=== PATIENT | male | born 1965 | race African-American/Black ===

== ENCOUNTER 2017-02-27 15:32 | Inpatient (IN) ==
[2017-02-27] MEDS ORDERED: Albuterol 2.5 MG/3 ML NEBULIZER IH PRN (16:40)
[2017-02-27] MEDS: *HR* HYDROcodone/Acet 5/325 mg TABLET PO PRN (17:47)
[2017-02-27] MEDS ORDERED: *HR* Warfarin 7.5 MG TABLET PO SCH (18:00)
[2017-02-27] MEDS: *HR* Glimepiride 4 MG TABLET PO SCH (21:32)
[2017-02-27] MEDS: METFORMIN HCL PO SCH (21:33)
[2017-02-27] MEDS: SITAGLIPTIN PHOS PO SCH (21:33)
[2017-02-27] MEDS: HYDROCHLOROTHIAZIDE PO SCH (21:33)
[2017-02-27] MEDS: VALSARTAN PO SCH (21:33)
[2017-02-27] MEDS: traMADol 50 MG TABLET PO PRN (23:33)
[2017-02-28] MEDS: *HR* HYDROcodone/Acet 5/325 mg TABLET PO PRN ×2 (05:10→12:19)
[2017-02-28 05:43] LABS: Basophils # 0.1 K/mcL (0.0-0.2); Basophils % 0.5 %; Eosinophils # 0.2 K/mcL (0.0-0.6); Eosinophils % 1.7 %; Hematocrit 40.1 % (37.5-50.1); Hemoglobin 13.7 g/dL (12.9-16.9); Immature Granulocytes % 0.9 % (0-4); Lymphocytes # 1.8 K/mcL (0.6-4.6); Lymphocytes % 15.5 %; Mean Corpuscular HGB Conc 34.2 g/dL (31.6-35.5); Mean Corpuscular Hemoglobin 29.1 pg (28.0-33.3); Mean Corpuscular Volume 85.1 fL (83.0-100.0); Mean Platelet Volume 9.8 fL (9.4-12.4); Monocytes % 8.4 %; Neutrophils # 8.3 K/mcL (1.6-8.9); Platelet Count 231 K/mcL (140-400); Red Blood Count 4.71 M/mcL (4.19-5.50); Red Cell Distribution Width 12.7 % (11.5-14.5)
[2017-02-28 05:45] LABS: INR 2.6; Prothrombin Time 29.1 Seconds (9.4-12.1)
[2017-02-28 05:53] LABS: BUN/Creatinine Ratio 10 (6-26); Blood Urea Nitrogen 11 mg/dL (8-26); Calcium 9.9 mg/dL (8.6-10.8); Carbon Dioxide 26 mEq/L (19-29); Chloride 105 mEq/L (98-109); Glucose 107 mg/dL (70-99); Osmolality,Calculated 290 (280-300); Potassium 4.1 mEq/L (3.5-4.5); Sodium 140 mEq/L (136-145); eGFR For African Americans > 60 (> 60); eGFR For Non-African Americans > 60 (> 60)
[2017-02-28] MEDS: HYDROCHLOROTHIAZIDE PO SCH ×2 (08:16→20:24)
[2017-02-28] MEDS: VALSARTAN PO SCH ×2 (08:16→20:24)
[2017-02-28] MEDS: Loratadine 10 MG TABLET PO SCH (08:16)
[2017-02-28] MEDS: *HR* Glimepiride 4 MG TABLET PO SCH ×2 (08:16→20:23)
[2017-02-28] MEDS: METFORMIN HCL PO SCH ×2 (08:16→17:20)
[2017-02-28] MEDS: Multivit/Ca/Min/Fe/FA 1 TAB TABLET PO SCH (08:16)
[2017-02-28] MEDS: (Ubidecarenone [Co Q-10] 100 MG) PO SCH (08:16)
[2017-02-28] MEDS: Diltiazem CD (24hr) 240 MG CAPSULE PO SCH (08:16)
[2017-02-28] MEDS: BuPROPion XL (24 HR) 150 MG TABLET PO SCH (08:16)
[2017-02-28] MEDS: SITAGLIPTIN PHOS PO SCH (08:16)
[2017-02-28] MEDS: Aspirin Enteric Coated 325 MG Tablet PO SCH (08:16)
[2017-02-28] MEDS: Budesonide/Formoterol 80/4.5 MDI IH SCH (08:21)
[2017-02-28] MEDS: Fluticasone Propionate Nasal 50 MCG/SPRAY BOTTLE NS SCH (08:22)
--- NOTE | 2017-02-28 11:20 | Internal Med History&Physical ---
Date of Encounter: 02/28/17 Time of Encounter: 11:20 Assessment and Plan (1) Cerebrovascular accident Current visit: No Status: Acute Patient had a CVA of the right internal capsule. He has also had previous CVAs according to the CT scan Qualifiers: CVA mechanism: unspecified Qualified Code(s): I63.9 - Cerebral infarction, unspecified (2) Essential hypertension Current visit: No Status: Chronic Her pressure seems well controlled (3) Diabetes mellitus, type 2 Current visit: No Status: Chronic Follow blood sugars. Qualifiers: Diabetes mellitus complication status: without complication Diabetes mellitus director long term care insulin use: without director long term care use Qualified Code(s): E11.9 - Type 2 diabetes mellitus without complications (4) Morbid obesity with BMI of 40.0-44.9, adult Current visit: No Status: Chronic I am sure patient is going to either lose weight or he will not survive Internal Medicine - H&P: HPI Chief complaint: Acute CVA Admitted From: Hospital to Hospital Transfer Plans for Post Hospital Care: Home History of present illness: Mr. Corado is a 52 year old male Patient is apparently had previous CVAs. He has an internal capsule involving ischemic CVA at this time Past Med Surg Social Fam HX - Past Medical History Medical history: asthma, CVA, diabetes, hyperlipidemia, hypertension, thyroid disease, TIA Psychiatric history: no psych history - Past Surgical History Surgical History: other - Social History Smoking Status: Former smoker Smokeless Tobacco Status: No Alcohol use: occasionally Drug use: marijuana - Family History Mother Living Status: Hx Family Cardiac Disorders: Yes Hx Family Respiratory Disorders: No Hx Family Cancer: Yes Hx Family GI Disorders: No Hx Family Endocrine Disorder: Yes Hx Family Neuromuscular Disorders: Yes Hx Family Neurologic Disorders: Yes Hx Family HEENT Disorders: No Hx Family Autoimmune Disorders: No Brother Hx Family Endocrine Disorder: Yes (carrier of prothombin gene mutation) Internal Medicine - H&P: Meds Albuterol Neb [Proventil Neb] 2.5 mg IH TID PRN 01/30/17 [History] Albuterol Sulfate [Albuterol Inhaler] 2 puff IH Q4H PRN 01/30/17 [History] Aspirin [Ecotrin] 325 mg PO DAILY 01/30/17 [History] BuPROPion XL (24 HR) [Wellbutrin Xl] 150 mg PO DAILY 01/30/17 [History] Cetirizine HCl [Zyrtec] 10 mg PO DAILY 01/30/17 [History] Clopidogrel [Plavix] 75 mg PO DAILY 01/30/17 [History] Cyclobenzaprine [Flexeril] 10 mg PO HS PRN 01/30/17 [History] Diltiazem HCl [Diltiazem 24Hr Cd] 240 mg PO DAILY 01/30/17 [History] Fluticasone Propionate Nasal [Flonase] 100 mcg NS DAILY 01/30/17 [History] Fluticasone/Salmeterol [Advair 100-50 Diskus] 2 puff IH DAILY 01/30/17 [History] Glimepiride [Amaryl] 4 mg PO BID 01/30/17 [History] Levothyroxine Sodium [Synthroid] 274 mcg PO QAM 01/30/17 [History] Multivitamin [Multi-Day Vitamins] 1 tab PO DAILY 01/30/17 [History] [place]-3/Dha/Epa/Fish Oil [Fish Oil 1,000 mg Softgel] 1,000 mg PO DAILY 01/30/17 [History] Simvastatin [Zocor] 20 mg PO HS 01/30/17 [History] Tramadol HCl [Ultram] 50 mg PO Q4H PRN 01/30/17 [History] Ubidecarenone [Co Q-10] 100 mg PO DAILY 01/30/17 [History] Valsartan/Hydrochlorothiazide [Diovan Hct 160-12.5 mg Tab] 0.5 each PO BID 01/30 [History] Exenatide Microspheres [Bydureon] 2 mg SQ WE 02/21/17 [History] Bisacodyl [Dulcolax] 5 mg PO DAILY PRN tab 02/27/17 [Rx] HYDROcodone/Acet 5/325 mg [[place] 5-325 mg] 1 tab PO Q8H PRN #12 tab 02/27/17 [Rx ] Warfarin [Coumadin] 7.5 mg PO DAILY@1800 #30 tab 02/27/17 [Rx] Linagliptin/Metformin HCl [Jentadueto 2.5 mg-1000 mg Tab] 1 each PO BIDWM [History] Allergies sulfamethoxazole [From Bactrim] Allergy (Verified 02/27/17 16:20) Hives trimethoprim [From Bactrim] Allergy (Verified 02/27/17 16:20) Hives atenolol Adverse Reaction (Verified 02/27/17 16:20) Palpitations All Systems PM: A 10-system review of systems was performed and is negative for pertinent findings except as documented above in the HPI. - Constitutional Vitals: Temp Pulse Resp BP Pulse Ox 98.4 F 99 18 124/86 95 02/28/17 11:05 02/28/17 11:05 02/28/17 11:05 02/28/17 11:05 02/28/17 11:05 Internal Med - H&P Results - Labs CBC & Chem 7: 02/28/17 05:20 02/28/17 05:20 Labs: Short CBC 02/28/17 Range/Units 05:20 WBC 11.3 H (4.3-11.1) K/mcL Hgb 13.7 (12.9-16.9) g/dL Hct 40.1 (37.5-50.1) % Plt Count 231 (140-400) K/mcL Neutrophils # 8.3 (1.6-8.9) K/mcL BMP 02/28/17 05:20 Sodium 140 Potassium 4.1 Chloride 105 Carbon Dioxide 26 BUN 11 Creatinine 1.05 Glucose 107 H Calcium 9.9 Labs stable
[2017-02-28] MEDS: predniSONE 20 MG TABLET PO SCH (14:00)
[2017-02-28] MEDS: *HR* Warfarin 2 MG TABLET PO SCH (17:20)
[2017-02-28] MEDS: *HR* OxyCODONE/APAP 10/325 TABLET PO PRN (17:20)
[2017-02-28] MEDS: LINAGLIPTIN PO SCH (17:20)
[2017-03-01] MEDS: *HR* OxyCODONE/APAP 10/325 TABLET PO PRN ×2 (05:06→09:47)
[2017-03-01 05:44] LABS: INR 2.2; Prothrombin Time 24.3 Seconds (9.4-12.1)
[2017-03-01] MEDS: Multivit/Ca/Min/Fe/FA 1 TAB TABLET PO SCH (08:09)
[2017-03-01] MEDS: *HR* Glimepiride 4 MG TABLET PO SCH ×2 (08:09→21:29)
[2017-03-01] MEDS: BuPROPion XL (24 HR) 150 MG TABLET PO SCH (08:09)
[2017-03-01] MEDS: predniSONE 20 MG TABLET PO SCH (08:10)
[2017-03-01] MEDS: LINAGLIPTIN PO SCH ×2 (08:10→17:13)
[2017-03-01] MEDS: Diltiazem CD (24hr) 240 MG CAPSULE PO SCH (08:10)
[2017-03-01] MEDS: Aspirin Enteric Coated 325 MG Tablet PO SCH (08:10)
[2017-03-01] MEDS: Fluticasone Propionate Nasal 50 MCG/SPRAY BOTTLE NS SCH (08:10)
[2017-03-01] MEDS: METFORMIN HCL PO SCH ×2 (08:10→17:13)
[2017-03-01] MEDS: Loratadine 10 MG TABLET PO SCH (08:10)
[2017-03-01] MEDS: (Ubidecarenone [Co Q-10] 100 MG) PO SCH (08:11)
[2017-03-01] MEDS: VALSARTAN PO SCH ×2 (08:12→21:29)
[2017-03-01] MEDS: HYDROCHLOROTHIAZIDE PO SCH ×2 (08:12→21:29)
[2017-03-01] MEDS: Budesonide/Formoterol 80/4.5 MDI IH SCH (08:12)
--- NOTE | 2017-03-01 13:16 | Internal Med Progress Note ---
Date of Encounter: 03/01/17 Time of Encounter: 13:14 - Assessment and plan (1) Cerebrovascular accident Current Visit: No Status: Acute Assessment and plan: Patient had CVA and is working with her therapist. Increasing strength and endurance Qualifiers: CVA mechanism: unspecified Qualified Code(s): I63.9 - Cerebral infarction, unspecified (2) Essential hypertension Current Visit: No Status: Chronic Assessment and plan: Blood pressure [place]k (3) Diabetes mellitus, type 2 Current Visit: No Status: Chronic Qualifiers: Diabetes mellitus complication status: without complication Diabetes mellitus alf insulin use: without alf use Qualified Code(s): E11.9 - Type 2 diabetes mellitus without complications (4) Morbid obesity with BMI of 40.0-44.9, adult Current Visit: No Status: Chronic - Time Spent With Patient less than 15 minutes - Subjective Interval history: Word with therapy complaints this time. - Constitutional Vitals: Temp Pulse Resp BP Pulse Ox 98.1 F 96 16 109/72 98 03/01/17 07:28 03/01/17 07:28 03/01/17 07:28 03/01/17 07:28 03/01/17 07:28 - Head Head exam: Present: atraumatic, normal inspection, normocephalic - Neck Neck exam general surgery: Present: supple, trachea midline. Absent: lymphadenopathy - Respiratory Respiratory exam: Present: CTAB. Absent: accessory muscle use, rales, rhonchi, wheezes - Cardiovascular Cardiovascular exam: Present: RRR, +S1, +S2. Absent: diastolic murmur, gallop, rubs, systolic murmur Internal Medicine: Result - Labs CBC & Chem 7: 02/28/17 05:20 02/28/17 05:20 Labs: Lab looks good - ABG Interpretation ABG results: PT/INR, D-dimer PT 24.3 Seconds (9.4-12.1) H 03/01/17 05:30 Consult Discharge Plan - Plan Instructions: Acute Gouty Arthritis (GEN) Referrals: Corinne Lopez MD [Primary Care Provider] -
[2017-03-01] MEDS: *HR* Warfarin 2 MG TABLET PO SCH (17:13)
[2017-03-02 05:46] LABS: INR 1.7; Prothrombin Time 18.8 Seconds (9.4-12.1)
[2017-03-02] MEDS: *HR* OxyCODONE/APAP 10/325 TABLET PO PRN (07:01)
[2017-03-02] MEDS: *HR* Glimepiride 4 MG TABLET PO SCH ×2 (08:19→20:26)
[2017-03-02] MEDS: Aspirin Enteric Coated 325 MG Tablet PO SCH (08:19)
[2017-03-02] MEDS: Multivit/Ca/Min/Fe/FA 1 TAB TABLET PO SCH (08:19)
[2017-03-02] MEDS: Diltiazem CD (24hr) 240 MG CAPSULE PO SCH (08:19)
[2017-03-02] MEDS: BuPROPion XL (24 HR) 150 MG TABLET PO SCH (08:19)
[2017-03-02] MEDS: Loratadine 10 MG TABLET PO SCH (08:19)
[2017-03-02] MEDS: (Ubidecarenone [Co Q-10] 100 MG) PO SCH (08:20)
[2017-03-02] MEDS: HYDROCHLOROTHIAZIDE PO SCH ×2 (08:21→20:35)
[2017-03-02] MEDS: METFORMIN HCL PO SCH ×2 (08:21→16:48)
[2017-03-02] MEDS: LINAGLIPTIN PO SCH ×2 (08:21→16:48)
[2017-03-02] MEDS: VALSARTAN PO SCH ×2 (08:21→20:35)
[2017-03-02] MEDS: Budesonide/Formoterol 80/4.5 MDI IH SCH (08:22)
[2017-03-02] MEDS: Fluticasone Propionate Nasal 50 MCG/SPRAY BOTTLE NS SCH (08:22)
[2017-03-02] MEDS: predniSONE 20 MG TABLET PO SCH (08:25)
--- NOTE | 2017-03-02 14:10 | Internal Med Progress Note ---
Date of Encounter: 03/02/17 Time of Encounter: 14:07 - Assessment and plan (1) Cerebrovascular accident Current Visit: Yes Status: Acute Assessment and plan: Patient is having some trouble with ambulation partly due to feet causing pain but he walked 120 feet daily which is excellent. He is progressing. I have counseled with him regarding his weight. Qualifiers: CVA mechanism: unspecified Qualified Code(s): I63.9 - Cerebral infarction, unspecified (2) Essential hypertension Current Visit: No Status: Chronic (3) Diabetes mellitus, type 2 Current Visit: No Status: Chronic Assessment and plan: Following. Qualifiers: Diabetes mellitus complication status: without complication Diabetes mellitus technician terminal and repeater insulin use: without fdc use Qualified Code(s): E11.9 - Type 2 diabetes mellitus without complications (4) Morbid obesity with BMI of 40.0-44.9, adult Current Visit: No Status: Chronic - Time Spent With Patient less than 15 minutes - Subjective Interval history: Word with therapy complaints this time. He is ambulating with therapy now states his feet are better. He did have a high uric acid level which is down slightly. - Constitutional Vitals: Temp Pulse Resp BP Pulse Ox 98 F 117 16 112/76 94 03/02/17 11:23 03/02/17 11:23 03/02/17 11:23 03/02/17 11:23 03/02/17 11:23 - Head Head exam: Present: atraumatic, normal inspection, normocephalic - Neck Neck exam general surgery: Present: supple, trachea midline. Absent: lymphadenopathy - Respiratory Respiratory exam: Present: CTAB. Absent: accessory muscle use, rales, rhonchi, wheezes - Cardiovascular Cardiovascular exam: Present: RRR, +S1, +S2. Absent: diastolic murmur, gallop, rubs, systolic murmur Internal Medicine: Result - Labs CBC & Chem 7: 02/28/17 05:20 02/28/17 05:20 Labs: Labs stable - ABG Interpretation ABG results: PT/INR, D-dimer PT 18.8 Seconds (9.4-12.1) H 03/02/17 05:20 Consult Discharge Plan - Plan Instructions: Acute Gouty Arthritis (GEN) Referrals: Corinne Lopez MD [Primary Care Provider] -
--- NOTE | 2017-03-02 14:25 | Psychological Evaluation ---
Date of Encounter: 03/02/17 Time of Encounter: 11:30 History of Present Illness History of present illness: Mr. Corado is a 52 year old male admitted to [facility] for inpatient rehabilitation following a recent CVA. Mr. Corado has had several CVA's since 2009. He was seen on this date to assess his current cognitive and emotional functioning. Past Medical History Medical history: Significant for hypertension, diabetes, CVA, asthma, morbid obesity, hyperlipidemia and thyroid disease. - Psychiatric History Additional Psychiatric History: There is no history of psychiatric hospitalization. Mr. Corado reported that he saw a therapist for one visit and has been treated by his PCP for depression with Wellbutrin. There is no family history of psychiatric hospitalization. Mr. Corado reported that his daughter is being treated for depression. Home Medications and Allergies Albuterol Neb [Proventil Neb] 2.5 mg IH TID PRN 01/30/17 [History] Albuterol Sulfate [Albuterol Inhaler] 2 puff IH Q4H PRN 01/30/17 [History] Aspirin [Ecotrin] 325 mg PO DAILY 01/30/17 [History] BuPROPion XL (24 HR) [Wellbutrin Xl] 150 mg PO DAILY 01/30/17 [History] Cetirizine HCl [Zyrtec] 10 mg PO DAILY 01/30/17 [History] Clopidogrel [Plavix] 75 mg PO DAILY 01/30/17 [History] Cyclobenzaprine [Flexeril] 10 mg PO HS PRN 01/30/17 [History] Diltiazem HCl [Diltiazem 24Hr Cd] 240 mg PO DAILY 01/30/17 [History] Fluticasone Propionate Nasal [Flonase] 100 mcg NS DAILY 01/30/17 [History] Fluticasone/Salmeterol [Advair 100-50 Diskus] 2 puff IH DAILY 01/30/17 [History] Glimepiride [Amaryl] 4 mg PO BID 01/30/17 [History] Levothyroxine Sodium [Synthroid] 274 mcg PO QAM 01/30/17 [History] Multivitamin [Multi-Day Vitamins] 1 tab PO DAILY 01/30/17 [History] [place]-3/Dha/Epa/Fish Oil [Fish Oil 1,000 mg Softgel] 1,000 mg PO DAILY 01/30/17 [History] Simvastatin [Zocor] 20 mg PO HS 01/30/17 [History] Tramadol HCl [Ultram] 50 mg PO Q4H PRN 01/30/17 [History] Ubidecarenone [Co Q-10] 100 mg PO DAILY 01/30/17 [History] Valsartan/Hydrochlorothiazide [Diovan Hct 160-12.5 mg Tab] 0.5 each PO BID 01/30 [History] Exenatide Microspheres [Bydureon] 2 mg SQ WE 02/21/17 [History] Bisacodyl [Dulcolax] 5 mg PO DAILY PRN tab 02/27/17 [Rx] HYDROcodone/Acet 5/325 mg [[place] 5-325 mg] 1 tab PO Q8H PRN #12 tab 02/27/17 [Rx ] Warfarin [Coumadin] 7.5 mg PO DAILY@1800 #30 tab 02/27/17 [Rx] Linagliptin/Metformin HCl [Jentadueto 2.5 mg-1000 mg Tab] 1 each PO BIDWM [History] Allergies sulfamethoxazole [From Bactrim] Allergy (Verified 02/27/17 16:20) Hives trimethoprim [From Bactrim] Allergy (Verified 02/27/17 16:20) Hives atenolol Adverse Reaction (Verified 02/27/17 16:20) Palpitations Social History - Social History Social History: Mr. Corado is and has one daughter (age 23). 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 He has been spending his days since nursing home doing yard work, gardening and fishing. He described himself as an "outdoor type of brigid". Social support system consists of his , daughter, his father and a close friend/neighbor. - Tobacco Use Smoking Status: Former smoker (Quit smoking during his years in the [employer].) - Alcohol Use Alcohol Use: occasionally - Drug Use Drug Use: marijuana (on occasion) Cognitive/Emotional Assessment - Cognitive Ability Additional Findings: Mr. Corado was alert, attentive and fully oriented. Speech was clear, fluent and effective. Thought processes were coherent, logical and goal-directed. There were no signs of delusional ideation or perceptual disturbances. Mr. Corado was able to do rote and simple mental arithmetic correctly. He performed within the average range on measures of attention/concentration, confrontational naming and sentence repetition. Auditory comprehension appeared adequate and he answered questions/responded appropriately. He performed within the mildly impaired range on a measure of delayed verbal recall. Performance was improved with recognition (multiple choice cueing) but he stated that he was simply guessing. Mr. Corado was noted to make excuses for his errors and commented that he probably would have scored as mildly impaired prior to this most recent CVA because "I don't pay attention to minor or unimportant things". - Emotional Status Additional Findings: Mr. Corado was cooperative. Mood was somber. Affect was congruent with mood. He denied any changes in his mood but acknowledged feeling "a little anxious" about his stroke recovery and the full extent he will regain functionally. He denied feeling sad or depressed but mentioned that on his mother's side of the family "people young". He appeared to minimize any emotional or cognitive changes post multiple strokes and stated that he is an optimistic person. Assessment & Plan - Diagnosis (1) Other specified mental disorders due to known physiological condition - Treatment Plan Treatment Plan/Recommendations: Provided Mr. Corado some educational information regarding stroke recovery and encouraged him to write notes/repeat information presented to him to assist in his recall of new information. Appears to be coping fairly well. Will follow as needed. Procedures - Session Time Session Start Time: 11:30 Session Stop Time: 12:00
[2017-03-02] MEDS ORDERED: Warfarin perPT PO PRN (15:08)
--- NOTE | 2017-03-02 15:52 | Physcial Medicine-Consult Note ---
Date of Encounter: 03/02/17 Time of Encounter: 15:49 Physical Medicine - AP (1) Cerebrovascular accident Status: Acute Assessment and plan: 1. Mr. Corado will continue with intensive PT/OT/TR to address gait, safety, transfers and ADLs. He is currently SBA/CGA for sit to stand transfers, ambulating 150 with SBA with a wheeled walker. He has some issues with short term memory, otherwise appears to be cognitively intact. KRIS 03/09/17. Code(s): I63.9 - Cerebral infarction, unspecified SNOMED Code(s): 050448885 (2) Constipation Status: Acute Assessment and plan: 1. We will try mag citrate for constipation. Code(s): K59.00 - Constipation, unspecified SNOMED Code(s): 44938162 Physical Medicine - HPI - Data of Consult Consult date: 03/02/17 Requesting Physician: Antione Shirley DO Primary Care Provider: Corinne Lopez, - Consult Narrative Reason for consult: CVA History of present illness: Mr. Corado is a 52 year old male who was admitted for inpatient rehabilitation following a CVA. Patient initially presented to an OSH with complaints of right arm and leg weakness, numbness and parasthesias. Patient underwent an mri of his brain which revealed a nonhemorrhagic CVA in the left internal capsule, chronic white matter ischemia and several old infarcts. Patient was stabilized and transferred for inpatient rehabilitation. CC: Antione Shirley DO Past Med Surg Social Fam HX - Past Medical History Medical history: asthma, CVA, diabetes, hyperlipidemia, hypertension, thyroid disease, TIA Psychiatric history: no psych history - Past Surgical History Surgical History: other - Social History Smoking Status: Former smoker (Quit smoking during his years in the [employer].) Smokeless Tobacco Status: No Alcohol use: occasionally Drug use: marijuana - Family History Mother Living Status: Hx Family Cardiac Disorders: Yes Hx Family Respiratory Disorders: No Hx Family Cancer: Yes Hx Family GI Disorders: No Hx Family Endocrine Disorder: Yes Hx Family Neuromuscular Disorders: Yes Hx Family Neurologic Disorders: Yes Hx Family HEENT Disorders: No Hx Family Autoimmune Disorders: No Brother Hx Family Endocrine Disorder: Yes (carrier of prothombin gene mutation) Medications and Allergies Albuterol Neb [Proventil Neb] 2.5 mg IH TID PRN 01/30/17 [History] Albuterol Sulfate [Albuterol Inhaler] 2 puff IH Q4H PRN 01/30/17 [History] Aspirin [Ecotrin] 325 mg PO DAILY 01/30/17 [History] BuPROPion XL (24 HR) [Wellbutrin Xl] 150 mg PO DAILY 01/30/17 [History] Cetirizine HCl [Zyrtec] 10 mg PO DAILY 01/30/17 [History] Clopidogrel [Plavix] 75 mg PO DAILY 01/30/17 [History] Cyclobenzaprine [Flexeril] 10 mg PO HS PRN 01/30/17 [History] Diltiazem HCl [Diltiazem 24Hr Cd] 240 mg PO DAILY 01/30/17 [History] Fluticasone Propionate Nasal [Flonase] 100 mcg NS DAILY 01/30/17 [History] Fluticasone/Salmeterol [Advair 100-50 Diskus] 2 puff IH DAILY 01/30/17 [History] Glimepiride [Amaryl] 4 mg PO BID 01/30/17 [History] Levothyroxine Sodium [Synthroid] 274 mcg PO QAM 01/30/17 [History] Multivitamin [Multi-Day Vitamins] 1 tab PO DAILY 01/30/17 [History] [place]-3/Dha/Epa/Fish Oil [Fish Oil 1,000 mg Softgel] 1,000 mg PO DAILY 01/30/17 [History] Simvastatin [Zocor] 20 mg PO HS 01/30/17 [History] Tramadol HCl [Ultram] 50 mg PO Q4H PRN 01/30/17 [History] Ubidecarenone [Co Q-10] 100 mg PO DAILY 01/30/17 [History] Valsartan/Hydrochlorothiazide [Diovan Hct 160-12.5 mg Tab] 0.5 each PO BID 01/30 [History] Exenatide Microspheres [Bydureon] 2 mg SQ WE 02/21/17 [History] Bisacodyl [Dulcolax] 5 mg PO DAILY PRN tab 02/27/17 [Rx] HYDROcodone/Acet 5/325 mg [[place] 5-325 mg] 1 tab PO Q8H PRN #12 tab 02/27/17 [Rx ] Warfarin [Coumadin] 7.5 mg PO DAILY@1800 #30 tab 02/27/17 [Rx] Linagliptin/Metformin HCl [Jentadueto 2.5 mg-1000 mg Tab] 1 each PO BIDWM [History] Allergies sulfamethoxazole [From Bactrim] Allergy (Verified 02/27/17 16:20) Hives trimethoprim [From Bactrim] Allergy (Verified 02/27/17 16:20) Hives atenolol Adverse Reaction (Verified 02/27/17 16:20) Palpitations - Constitutional Constitutional: Present: weakness. Absent: anorexia, chills, headache(s) - Cardiovascular Cardiovascular: Absent: chest pain, diaphoresis, lightheadedness - Respiratory Respiratory: Absent: dyspnea - Gastrointestinal Gastrointestinal: Present: constipation. Absent: abdominal pain - Musculoskeletal Musculoskeletal: Present: abnormal gait. Absent: muscle cramps, radiating pain into limb - Neurological Neurological: Present: abnormal gait, focal weakness. Absent: disequilibrium, dizziness - Psychiatric Psychiatric: Absent: confusion, depression Physical Medicine - Exam - Constitutional Vitals: Temp Pulse Resp BP Pulse Ox 98 F 117 16 112/76 94 03/02/17 11:23 03/02/17 11:23 03/02/17 11:23 03/02/17 11:23 03/02/17 11:23 General appearance: cooperative, morbidly obese, no acute distress - Head Head exam: Present: atraumatic, normal inspection Additional comments: Cranial nerves II-XII intact. No facial droop. - Respiratory Respiratory exam: Present: CTAB - Cardiovascular Cardiovascular exam: Present: RRR - GI/Abdominal GI/Abdominal exam: Present: normal bowel sounds, soft. Absent: tenderness - Extremities Exam Extremities exam: Absent: calf tenderness Additional comments: Reflexes are absent symmetrically in the upper and lower limbs. Motor strength is 5/5 in the bilateral upper limbs, left lower limb motor strength is 5/5, right lower limb motor strength is 5/5 with the exception of DF 4/5, KE 4-/5. Physical Medicine - Results - Labs CBC & Chem 7: 02/28/17 05:20 02/28/17 05:20 Consult Discharge Plan - Plan Instructions: Acute Gouty Arthritis (GEN) Referrals: Corinne Lopez MD [Primary Care Provider] -
[2017-03-02] MEDS: *HR* Warfarin 7.5 MG TABLET PO SCH (16:34)
[2017-03-03 05:29] LABS: INR 1.8; Prothrombin Time 19.8 Seconds (9.4-12.1)
[2017-03-03] MEDS: BuPROPion XL (24 HR) 150 MG TABLET PO SCH (08:46)
[2017-03-03] MEDS: *HR* Glimepiride 4 MG TABLET PO SCH ×2 (08:47→20:49)
[2017-03-03] MEDS: VALSARTAN PO SCH ×2 (08:47→20:49)
[2017-03-03] MEDS: Budesonide/Formoterol 80/4.5 MDI IH SCH (08:47)
[2017-03-03] MEDS: predniSONE 20 MG TABLET PO SCH (08:47)
[2017-03-03] MEDS: Multivit/Ca/Min/Fe/FA 1 TAB TABLET PO SCH (08:47)
[2017-03-03] MEDS: HYDROCHLOROTHIAZIDE PO SCH ×2 (08:47→20:49)
[2017-03-03] MEDS: Loratadine 10 MG TABLET PO SCH (08:47)
[2017-03-03] MEDS: Diltiazem CD (24hr) 240 MG CAPSULE PO SCH (08:47)
[2017-03-03] MEDS: Aspirin Enteric Coated 325 MG Tablet PO SCH (08:47)
[2017-03-03] MEDS: Fluticasone Propionate Nasal 50 MCG/SPRAY BOTTLE NS SCH (08:48)
[2017-03-03] MEDS: (Ubidecarenone [Co Q-10] 100 MG) PO SCH (08:48)
[2017-03-03] MEDS: METFORMIN HCL PO SCH ×2 (08:48→17:20)
[2017-03-03] MEDS: LINAGLIPTIN PO SCH ×2 (08:48→17:20)
--- NOTE | 2017-03-03 15:29 | Internal Med Progress Note ---
Date of Encounter: 03/03/17 Time of Encounter: 15:27 - Assessment and plan (1) Cerebrovascular accident Current Visit: Yes Status: Acute Assessment and plan: Patient has CVA and is here for rehabilitation. Qualifiers: CVA mechanism: unspecified Qualified Code(s): I63.9 - Cerebral infarction, unspecified (2) Essential hypertension Current Visit: No Status: Chronic Assessment and plan: Blood pressure well controlled (3) Diabetes mellitus, type 2 Current Visit: No Status: Chronic Assessment and plan: Following blood sugar Qualifiers: Diabetes mellitus complication status: without complication Diabetes mellitus retirement insulin use: without retirement use Qualified Code(s): E11.9 - Type 2 diabetes mellitus without complications (4) Morbid obesity with BMI of 40.0-44.9, adult Current Visit: No Status: Chronic Assessment and plan: That swallowing to see the dietitian to discuss weight loss programs. - Time Spent With Patient less than 15 minutes - Subjective Interval history: Word with therapy complaints this time. He is ambulating with therapy now states his feet are better. He did have a high uric acid level which is down slightly. Along with the dietitian talk to the patient today but states oral medication. So she will see him next week - Constitutional Vitals: Temp Pulse Resp BP Pulse Ox 97.9 F 98 18 104/66 94 03/03/17 07:07 03/03/17 07:07 03/03/17 07:07 03/03/17 07:07 03/03/17 07:07 - Head Head exam: Present: atraumatic, normal inspection, normocephalic - Neck Neck exam general surgery: Present: supple, trachea midline. Absent: lymphadenopathy - Respiratory Respiratory exam: Present: CTAB. Absent: accessory muscle use, rales, rhonchi, wheezes - Cardiovascular Cardiovascular exam: Present: RRR, +S1, +S2. Absent: diastolic murmur, gallop, rubs, systolic murmur Internal Medicine: Result - Labs CBC & Chem 7: 02/28/17 05:20 02/28/17 05:20 Labs: Lab is stable - ABG Interpretation ABG results: PT/INR, D-dimer PT 19.8 Seconds (9.4-12.1) H 03/03/17 05:00 Consult Discharge Plan - Plan Instructions: Acute Gouty Arthritis (GEN) Referrals: Corinne Lopez MD [Primary Care Provider] -
[2017-03-03] MEDS: *HR* Warfarin 7.5 MG TABLET PO SCH (17:20)
[2017-03-04] MEDS: traMADol 50 MG TABLET PO PRN ×2 (03:32→09:14)
[2017-03-04 05:20] LABS: Prothrombin Time 21.6 Seconds (9.4-12.1)
[2017-03-04] MEDS: Fluticasone Propionate Nasal 50 MCG/SPRAY BOTTLE NS SCH (08:20)
[2017-03-04] MEDS: Budesonide/Formoterol 80/4.5 MDI IH SCH (08:20)
[2017-03-04] MEDS: (Ubidecarenone [Co Q-10] 100 MG) PO SCH (08:21)
[2017-03-04] MEDS: METFORMIN HCL PO SCH ×2 (08:22→17:08)
[2017-03-04] MEDS: VALSARTAN PO SCH ×2 (08:22→21:33)
[2017-03-04] MEDS: LINAGLIPTIN PO SCH ×2 (08:22→17:08)
[2017-03-04] MEDS: HYDROCHLOROTHIAZIDE PO SCH ×2 (08:22→21:33)
[2017-03-04] MEDS: *HR* Glimepiride 4 MG TABLET PO SCH ×2 (08:24→21:33)
[2017-03-04] MEDS: predniSONE 20 MG TABLET PO SCH (08:24)
[2017-03-04] MEDS: Multivit/Ca/Min/Fe/FA 1 TAB TABLET PO SCH (08:24)
[2017-03-04] MEDS: Diltiazem CD (24hr) 240 MG CAPSULE PO SCH (08:24)
[2017-03-04] MEDS: BuPROPion XL (24 HR) 150 MG TABLET PO SCH (08:24)
[2017-03-04] MEDS: Aspirin Enteric Coated 325 MG Tablet PO SCH (08:24)
[2017-03-04] MEDS: Loratadine 10 MG TABLET PO SCH (08:24)
--- NOTE | 2017-03-04 15:14 | Internal Med Progress Note ---
Date of Encounter: 03/04/17 Time of Encounter: 15:12 - Assessment and plan (1) Cerebrovascular accident Current Visit: Yes Status: Acute Assessment and plan: CVA some reason the patient is here. We have counseled about weight loss controlled etc. Qualifiers: CVA mechanism: unspecified Qualified Code(s): I63.9 - Cerebral infarction, unspecified (2) Essential hypertension Current Visit: No Status: Chronic (3) Diabetes mellitus, type 2 Current Visit: No Status: Chronic Qualifiers: Diabetes mellitus complication status: without complication Diabetes mellitus residential insulin use: without residential use Qualified Code(s): E11.9 - Type 2 diabetes mellitus without complications (4) Morbid obesity with BMI of 40.0-44.9, adult Current Visit: No Status: Chronic - Time Spent With Patient less than 15 minutes - Subjective Interval history: No complaints. Dietitian see him Tuesday - Constitutional Vitals: Temp Pulse Resp BP Pulse Ox 98 F 94 15 112/75 92 03/04/17 06:00 03/04/17 06:00 03/04/17 06:00 03/04/17 06:00 03/04/17 06:00 - Head Head exam: Present: atraumatic, normal inspection, normocephalic - Neck Neck exam general surgery: Present: supple, trachea midline. Absent: lymphadenopathy - Respiratory Respiratory exam: Present: CTAB. Absent: accessory muscle use, rales, rhonchi, wheezes - Cardiovascular Cardiovascular exam: Present: RRR, +S1, +S2. Absent: diastolic murmur, gallop, rubs, systolic murmur - GI/Abdominal GI/Abdominal exam: Present: normal bowel sounds, soft, no peritoneal signs. Absent: distended, tenderness Internal Medicine: Result - Labs CBC & Chem 7: 02/28/17 05:20 02/28/17 05:20 Labs: Lab is stable - ABG Interpretation ABG results: PT/INR, D-dimer PT 21.6 Seconds (9.4-12.1) H 03/04/17 05:00 Consult Discharge Plan - Plan Instructions: Acute Gouty Arthritis (GEN) Referrals: Corinne Lopez MD [Primary Care Provider] -
[2017-03-04] MEDS: *HR* Warfarin 7.5 MG TABLET PO SCH (17:14)
[2017-03-05 05:16] LABS: INR 2.2; Prothrombin Time 24.2 Seconds (9.4-12.1)
[2017-03-05] MEDS: BuPROPion XL (24 HR) 150 MG TABLET PO SCH (08:05)
[2017-03-05] MEDS: predniSONE 20 MG TABLET PO SCH (08:06)
[2017-03-05] MEDS: Diltiazem CD (24hr) 240 MG CAPSULE PO SCH (08:06)
[2017-03-05] MEDS: Loratadine 10 MG TABLET PO SCH (08:06)
[2017-03-05] MEDS: traMADol 50 MG TABLET PO PRN (08:06)
[2017-03-05] MEDS: *HR* Glimepiride 4 MG TABLET PO SCH ×2 (08:06→21:45)
[2017-03-05] MEDS: Multivit/Ca/Min/Fe/FA 1 TAB TABLET PO SCH (08:06)
[2017-03-05] MEDS: Budesonide/Formoterol 80/4.5 MDI IH SCH (08:06)
[2017-03-05] MEDS: Aspirin Enteric Coated 325 MG Tablet PO SCH (08:06)
[2017-03-05] MEDS: METFORMIN HCL PO SCH ×2 (08:07→17:51)
[2017-03-05] MEDS: Fluticasone Propionate Nasal 50 MCG/SPRAY BOTTLE NS SCH (08:07)
[2017-03-05] MEDS: LINAGLIPTIN PO SCH ×2 (08:07→17:51)
[2017-03-05] MEDS: (Ubidecarenone [Co Q-10] 100 MG) PO SCH (08:08)
[2017-03-05] MEDS: VALSARTAN PO SCH ×2 (08:09→21:46)
[2017-03-05] MEDS: HYDROCHLOROTHIAZIDE PO SCH ×2 (08:09→21:46)
--- NOTE | 2017-03-05 11:19 | Internal Med Progress Note ---
Date of Encounter: 03/05/17 Time of Encounter: 11:17 - Assessment and plan (1) Cerebrovascular accident Current Visit: Yes Status: Acute Assessment and plan: Patient's here for rehabilitation due to CVA. Most issue at this point now is walking about Qualifiers: CVA mechanism: unspecified Qualified Code(s): I63.9 - Cerebral infarction, unspecified (2) Essential hypertension Current Visit: No Status: Chronic Assessment and plan: Patient occasionally had a bump in his diastolic. But generally her blood pressures have been well controlled (3) Diabetes mellitus, type 2 Current Visit: No Status: Chronic Assessment and plan: Following blood sugars Qualifiers: Diabetes mellitus complication status: without complication Diabetes mellitus tower observer insulin use: without residential use Qualified Code(s): E11.9 - Type 2 diabetes mellitus without complications (4) Morbid obesity with BMI of 40.0-44.9, adult Current Visit: No Status: Chronic Assessment and plan: Counseled and will see the dietitian - Time Spent With Patient less than 15 minutes - Subjective Interval history: Feet are much better patient's able to ambulate he said still some discomfort but nothing like it was. - Constitutional Vitals: Temp Pulse Resp BP Pulse Ox 97.6 F 90 20 114/81 91 03/05/17 07:00 03/05/17 07:00 03/05/17 07:00 03/05/17 07:00 03/05/17 07:00 - Head Head exam: Present: atraumatic, normal inspection, normocephalic - Neck Neck exam general surgery: Present: supple, trachea midline. Absent: lymphadenopathy - Respiratory Respiratory exam: Present: CTAB. Absent: accessory muscle use, rales, rhonchi, wheezes - Cardiovascular Cardiovascular exam: Present: RRR, +S1, +S2. Absent: diastolic murmur, gallop, rubs, systolic murmur Internal Medicine: Result - Labs CBC & Chem 7: 02/28/17 05:20 02/28/17 05:20 Labs: Labs stable - ABG Interpretation ABG results: PT/INR, D-dimer PT 24.2 Seconds (9.4-12.1) H 03/05/17 05:00 Consult Discharge Plan - Plan Instructions: Acute Gouty Arthritis (GEN) Referrals: Corinne Lopez MD [Primary Care Provider] -
[2017-03-05] MEDS: *HR* Warfarin 7.5 MG TABLET PO SCH (17:50)
[2017-03-06] MEDS: traMADol 50 MG TABLET PO PRN ×2 (01:20→08:51)
[2017-03-06 05:40] LABS: INR 2.2; Prothrombin Time 24.2 Seconds (9.4-12.1)
[2017-03-06] MEDS: BuPROPion XL (24 HR) 150 MG TABLET PO SCH (08:50)
[2017-03-06] MEDS: predniSONE 20 MG TABLET PO SCH (08:50)
[2017-03-06] MEDS: Aspirin Enteric Coated 325 MG Tablet PO SCH (08:50)
[2017-03-06] MEDS: Loratadine 10 MG TABLET PO SCH (08:50)
[2017-03-06] MEDS: LINAGLIPTIN PO SCH ×2 (08:51→17:49)
[2017-03-06] MEDS: *HR* Glimepiride 4 MG TABLET PO SCH ×2 (08:51→21:30)
[2017-03-06] MEDS: Multivit/Ca/Min/Fe/FA 1 TAB TABLET PO SCH (08:51)
[2017-03-06] MEDS: METFORMIN HCL PO SCH ×2 (08:51→17:49)
[2017-03-06] MEDS: Diltiazem CD (24hr) 240 MG CAPSULE PO SCH (08:51)
[2017-03-06] MEDS: Fluticasone Propionate Nasal 50 MCG/SPRAY BOTTLE NS SCH (08:52)
[2017-03-06] MEDS: HYDROCHLOROTHIAZIDE PO SCH ×2 (08:53→21:31)
[2017-03-06] MEDS: VALSARTAN PO SCH ×2 (08:53→21:31)
[2017-03-06] MEDS: Budesonide/Formoterol 80/4.5 MDI IH SCH (08:53)
[2017-03-06] MEDS: (Ubidecarenone [Co Q-10] 100 MG) PO SCH (08:53)
--- NOTE | 2017-03-06 11:11 | Internal Med Progress Note ---
<Antione Shirley - Last Filed: 03/06/17 11:09> Date of Encounter: 03/06/17 Time of Encounter: 11:09 - Assessment and plan (1) Cerebrovascular accident Current Visit: Yes Status: Acute Assessment and plan: Right now working on balance and ambulation Qualifiers: CVA mechanism: unspecified Qualified Code(s): I63.9 - Cerebral infarction, unspecified (2) Essential hypertension Current Visit: No Status: Chronic (3) Diabetes mellitus, type 2 Current Visit: No Status: Chronic Assessment and plan: Her blood sugar Qualifiers: Diabetes mellitus complication status: without complication Diabetes mellitus exterminator termite insulin use: without custodial use Qualified Code(s): E11.9 - Type 2 diabetes mellitus without complications (4) Morbid obesity with BMI of 40.0-44.9, adult Current Visit: No Status: Chronic Assessment and plan: As been counseled and will see the dietitian this week - Time Spent With Patient less than 15 minutes - Subjective Interval history: Feet are much better patient's able to ambulate he said still some discomfort but nothing like it was. - Constitutional Vitals: Temp Pulse Resp BP Pulse Ox 98.3 F 99 14 130/79 93 03/06/17 07:00 03/06/17 07:00 03/06/17 07:00 03/06/17 07:00 03/06/17 07:00 General appearance: Present: pleasant, no acute distress - Head Head exam: Present: atraumatic, normal inspection, normocephalic - Neck Neck exam general surgery: Present: supple, trachea midline. Absent: lymphadenopathy - Respiratory Respiratory exam: Present: CTAB. Absent: accessory muscle use, rales, rhonchi, wheezes - Cardiovascular Cardiovascular exam: Present: RRR, +S1, +S2. Absent: diastolic murmur, gallop, rubs, systolic murmur Internal Medicine: Result - Labs CBC & Chem 7: 02/28/17 05:20 02/28/17 05:20 Labs: Labs stable - ABG Interpretation ABG results: PT/INR, D-dimer PT 24.2 Seconds (9.4-12.1) H 03/06/17 05:20 Consult Discharge Plan - Plan Instructions: Acute Gouty Arthritis (GEN) Referrals: Corinne Lopez MD [Primary Care Provider] - <Antione Garrison - Last Filed: 03/07/17 12:39> Date of Encounter: 03/07/17 Time of Encounter: 08:15 - Assessment and plan (1) Cerebrovascular accident Current Visit: Yes Status: Acute Qualifiers: CVA mechanism: thrombosis Precerebral and cerebral artery: unspecified cerebral artery Qualified Code(s): I63.30 - Cerebral infarction due to thrombosis of unspecified cerebral artery (2) Right sided weakness Current Visit: Yes Status: Acute Assessment and plan: 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 He is showing improvement. He is ambulating with a walker. Strength improving. (3) Gout Current Visit: Yes Status: Acute Assessment and plan: Symptomatically his gout is under control. He has no tenderness on foot exam. No redness or swelling. 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 Current Visit: Yes Status: Chronic (7) Constipation Current Visit: Yes Status: Acute Qualifiers: Constipation type: other constipation type Qualified Code(s): K59.09 - Other constipation (8) Hypothyroid Current Visit: Yes Status: Chronic Qualifiers: Hypothyroidism type: acquired Qualified Code(s): E03.9 - Hypothyroidism, unspecified (9) Morbid obesity with BMI of 40.0-44.9, adult Current Visit: No Status: Chronic - Constitutional Vitals: Temp Pulse Resp BP Pulse Ox 97.8 F 99 16 99/62 98 03/07/17 07:00 03/07/17 07:00 03/07/17 07:00 03/07/17 07:00 03/07/17 07:00 General appearance: Present: pleasant, no acute distress - Neck Additional comments: No carotid bruits - Respiratory Respiratory exam: Present: CTAB - Cardiovascular Cardiovascular exam: Present: RRR, +S1, +S2 - GI/Abdominal Additional comments: Did not evaluate. - Extremities Exam Additional comments: His right foot was evaluated. There is no redness or tenderness. - Neurological Exam Additional comments: He has slightly weaker deltoid on the right compared to left (may also be related to his labrum issue) right lower extremity quads slightly weaker than the left. When ambulating he has a slight limp weaker on the right side. Mild foot drop on the right. He is able to get from seated to standing position without assistance except for the walker Internal Medicine: Result - Labs CBC & Chem 7: 03/07/17 05:45 03/07/17 05:45 Labs: Short CBC 03/07/17 Range/Units 05:45 WBC 11.1 (4.3-11.1) K/mcL Hgb 15.1 (12.9-16.9) g/dL Hct 44.4 (37.5-50.1) % Plt Count 307 (140-400) K/mcL Neutrophils # 6.7 (1.6-8.9) K/mcL BMP 03/07/17 05:45 Sodium 137 Potassium 3.9 Chloride 102 Carbon Dioxide 25 BUN 19 Creatinine 1.03 Glucose 65 L Calcium 10.1 Labs have been reviewed. Glucose slightly low but no symptoms. - ABG Interpretation ABG results: PT/INR, D-dimer PT 23.9 Seconds (9.4-12.1) H 03/07/17 05:45
[2017-03-06] MEDS: *HR* Warfarin 7.5 MG TABLET PO SCH (17:49)
[2017-03-07] MEDS: traMADol 50 MG TABLET PO PRN (05:50)
[2017-03-07 06:02] LABS: Basophils # 0.1 K/mcL (0.0-0.2); Basophils % 0.7 %; Eosinophils # 0.1 K/mcL (0.0-0.6); Eosinophils % 1.2 %; Hematocrit 44.4 % (37.5-50.1); Hemoglobin 15.1 g/dL (12.9-16.9); INR 2.2; Immature Granulocytes % 1.2 % (0-4); Lymphocytes # 3.3 K/mcL (0.6-4.6); Lymphocytes % 29.7 %; Mean Corpuscular Volume 85.4 fL (83.0-100.0); Mean Platelet Volume 9.4 fL (9.4-12.4); Monocytes # 0.7 K/mcL (0.0-1.3); Monocytes % 6.7 %; Neutrophils # 6.7 K/mcL (1.6-8.9); Platelet Count 307 K/mcL (140-400); Prothrombin Time 23.9 Seconds (9.4-12.1); Red Cell Distribution Width 12.7 % (11.5-14.5); Segmented Neutrophils % 60.5 %
[2017-03-07 06:16] LABS: BUN/Creatinine Ratio 18 (6-26); Blood Urea Nitrogen 19 mg/dL (8-26); Calcium 10.1 mg/dL (8.6-10.8); Carbon Dioxide 25 mEq/L (19-29); Chloride 102 mEq/L (98-109); Glucose 65 mg/dL (70-99); Osmolality,Calculated 284 (280-300); Potassium 3.9 mEq/L (3.5-4.5); Sodium 137 mEq/L (136-145); eGFR For African Americans > 60 (> 60); eGFR For Non-African Americans > 60 (> 60)
[2017-03-07] MEDS: Loratadine 10 MG TABLET PO SCH (08:25)
[2017-03-07] MEDS: LINAGLIPTIN PO SCH ×2 (08:25→16:46)
[2017-03-07] MEDS: *HR* Glimepiride 4 MG TABLET PO SCH ×2 (08:25→22:32)
[2017-03-07] MEDS: predniSONE 20 MG TABLET PO SCH (08:25)
[2017-03-07] MEDS: METFORMIN HCL PO SCH ×2 (08:25→16:46)
[2017-03-07] MEDS: Multivit/Ca/Min/Fe/FA 1 TAB TABLET PO SCH (08:25)
[2017-03-07] MEDS: Aspirin Enteric Coated 325 MG Tablet PO SCH (08:25)
[2017-03-07] MEDS: BuPROPion XL (24 HR) 150 MG TABLET PO SCH (08:25)
[2017-03-07] MEDS: Diltiazem CD (24hr) 240 MG CAPSULE PO SCH (08:25)
[2017-03-07] MEDS: (Ubidecarenone [Co Q-10] 100 MG) PO SCH (08:26)
[2017-03-07] MEDS: VALSARTAN PO SCH ×2 (08:26→19:23)
[2017-03-07] MEDS: HYDROCHLOROTHIAZIDE PO SCH ×2 (08:26→19:23)
[2017-03-07] MEDS: Fluticasone Propionate Nasal 50 MCG/SPRAY BOTTLE NS SCH (08:26)
[2017-03-07] MEDS: Budesonide/Formoterol 80/4.5 MDI IH SCH (08:26)
--- NOTE | 2017-03-07 08:39 | Internal Med Progress Note ---
Date of Encounter: 03/07/17 Time of Encounter: 08:35 - Assessment and plan (1) Cerebrovascular accident Current Visit: Yes Status: Acute Assessment and plan: History of internal capsule CVA with right hemiplegia and gait and gait abnormality. He continues to improve. Some of his decreased range of motion and difficulty is with the right upper extremity involves orthopedic shoulder issues as well. He is showing improvement, he is ambulating with a walker. Weaker right lower extremity and foot drop continues. Continue with physical therapy. Continue with anticoagulation with Coumadin. Coumadin is therapeutic at 2.9. Qualifiers: CVA mechanism: thrombosis Precerebral and cerebral artery: unspecified cerebral artery Qualified Code(s): I63.30 - Cerebral infarction due to thrombosis of unspecified cerebral artery (2) Right sided weakness Current Visit: Yes Status: Acute Assessment and plan: Right-sided weakness from CVA from internal capsule infarct. Discussion as above. Continue with physical therapy (3) Gout Current Visit: Yes Status: Acute Assessment and plan: His gout appears to be under good control. No findings on examination today. Qualifiers: Gout site: foot Gout etiology: idiopathic Chronicity: chronic Laterality: unspecified laterality Presence of tophus: without tophus Qualified Code(s): M1A.0790 - Idiopathic chronic gout, unspecified ankle and foot, without tophus (tophi) (4) Essential hypertension Current Visit: Yes Status: Chronic Assessment and plan: Blood pressure is under good control, in fact a little bit on the low side today but not symptomatic. I will follow (5) Diabetes mellitus, type 2 Current Visit: Yes Status: Chronic Assessment and plan: Sugars are under good control. His recent glycohemoglobin is good at 6.7%. Continue same medical regimen. Qualifiers: Diabetes mellitus complication detail: with other neurological complication Diabetes mellitus ferry terminal agent insulin use: without correction use Qualified Code(s): E11.49 - Type 2 diabetes mellitus with other diabetic neurological complication (6) Heterozygous for prothrombin [id number] mutation Current Visit: Yes Status: Chronic Assessment and plan: Coumadin has been started at [facility] and continuing. Therapeutic INR 2.9. (7) Constipation Current Visit: Yes Status: Acute Assessment and plan: His bowels are starting to move a bit better, just small amounts currently. He does not want other intervention for now. He has backed off on his pain medication Qualifiers: Constipation type: other constipation type Qualified Code(s): K59.09 - Other constipation (8) Hypothyroid Current Visit: Yes Status: Chronic Assessment and plan: Chronic history of hypothyroidism and under control with normal TSH. Qualifiers: Hypothyroidism type: acquired Qualified Code(s): E03.9 - Hypothyroidism, unspecified (9) Morbid obesity with BMI of 40.0-44.9, adult Current Visit: No Status: Chronic - Subjective Interval history: Patient is somewhat frustrated because he thinks he should be making faster progress. He is progressing well, ambulating down the hallway to the ER and back. He still has some instability when walking particularly of the right lower extremity. He denies chest pain, palpitations, irregular heartbeat, dyspnea, abdominal pain. His bowels are starting to move better, but still small amounts. His gout in his feet, particularly the right one, is much better. It was hindering his ambulation, now basically pain-free on exam. - Constitutional Vitals: Temp Pulse Resp BP Pulse Ox 97.8 F 99 16 99/62 98 03/07/17 07:00 03/07/17 07:00 03/07/17 07:00 03/07/17 07:00 03/07/17 07:00 General appearance: Present: A&O X 3, pleasant, no acute distress, answers questions appropriately - Eye Eye exam: Present: PERRL - Neck Neck exam general surgery: Absent: lymphadenopathy Additional comments: No carotid bruits - Respiratory Respiratory exam: Present: CTAB. Absent: rhonchi, wheezes - Cardiovascular Cardiovascular exam: Present: RRR, +S1, +S2. Absent: systolic murmur - GI/Abdominal Additional comments: Abdomen examination deferred - Extremities Exam Extremities exam: Absent: calf tenderness, cyanotic, pedal edema Additional comments: Foot examination was normal without tenderness or redness of gout - Neurological Exam Neurological exam: Present: CN II-XII intact. Absent: facial droop, speech deficit Additional comments: Slightly diminished strength and movement in the right upper extremity compared to the left (may have involvement of the labral problem). Hand grasp is normal bilaterally. Right lower extremity quad slightly weak compared to left. He is able to go from seated position on the bed to standing at the walker independently. When he walks he has a slight limp and foot drop on the right side. He is able to walk to the ER and back in the hallway. Internal Medicine: Result - Labs CBC & Chem 7: 03/07/17 05:45 03/07/17 05:45 Labs: Short CBC 03/07/17 Range/Units 05:45 WBC 11.1 (4.3-11.1) K/mcL Hgb 15.1 (12.9-16.9) g/dL Hct 44.4 (37.5-50.1) % Plt Count 307 (140-400) K/mcL Neutrophils # 6.7 (1.6-8.9) K/mcL BMP 03/07/17 05:45 Sodium 137 Potassium 3.9 Chloride 102 Carbon Dioxide 25 BUN 19 Creatinine 1.03 Glucose 65 L Calcium 10.1 Labs have been reviewed. Glucose slightly low but asymptomatic. Unremarkable otherwise - ABG Interpretation ABG results: PT/INR, D-dimer PT 23.9 Seconds (9.4-12.1) H 03/07/17 05:45 Consult Discharge Plan - Plan Instructions: Acute Gouty Arthritis (GEN) Referrals: Corinne Lopez MD [Primary Care Provider] -
[2017-03-07] MEDS: predniSONE 10 MG TABLET PO SCH (10:03)
[2017-03-07] MEDS: *HR* Warfarin 7.5 MG TABLET PO SCH (16:46)
[2017-03-08 05:55] LABS: INR 2.5
[2017-03-08] MEDS: Aspirin Enteric Coated 325 MG Tablet PO SCH (08:02)
[2017-03-08] MEDS: traMADol 50 MG TABLET PO PRN (08:02)
[2017-03-08] MEDS: Multivit/Ca/Min/Fe/FA 1 TAB TABLET PO SCH (08:02)
[2017-03-08] MEDS: Diltiazem CD (24hr) 240 MG CAPSULE PO SCH (08:02)
[2017-03-08] MEDS: BuPROPion XL (24 HR) 150 MG TABLET PO SCH (08:02)
[2017-03-08] MEDS: Loratadine 10 MG TABLET PO SCH (08:02)
[2017-03-08] MEDS: predniSONE 10 MG TABLET PO SCH (08:02)
[2017-03-08] MEDS: *HR* Glimepiride 4 MG TABLET PO SCH ×2 (08:02→20:42)
[2017-03-08] MEDS: Fluticasone Propionate Nasal 50 MCG/SPRAY BOTTLE NS SCH (08:03)
[2017-03-08] MEDS: Budesonide/Formoterol 80/4.5 MDI IH SCH (08:03)
[2017-03-08] MEDS: LINAGLIPTIN PO SCH ×2 (08:10→18:18)
[2017-03-08] MEDS: METFORMIN HCL PO SCH ×2 (08:10→18:18)
[2017-03-08] MEDS: HYDROCHLOROTHIAZIDE PO SCH ×2 (10:23→20:42)
[2017-03-08] MEDS: VALSARTAN PO SCH ×2 (10:23→20:42)
[2017-03-08] MEDS: (Ubidecarenone [Co Q-10] 100 MG) PO SCH (10:23)
--- NOTE | 2017-03-08 17:08 | Internal Med Progress Note ---
Date of Encounter: 03/08/17 Time of Encounter: 17:06 - Assessment and plan (1) Cerebrovascular accident Current Visit: Yes Status: Acute Assessment and plan: He is advancing with his therapies. Still has some right-sided weakness and gait abnormality. Plan is for discharge tomorrow. He denies any acute or worsening symptoms. Qualifiers: CVA mechanism: thrombosis Precerebral and cerebral artery: unspecified cerebral artery Qualified Code(s): I63.30 - Cerebral infarction due to thrombosis of unspecified cerebral artery (2) Right sided weakness Current Visit: Yes Status: Acute (3) Gout Current Visit: Yes Status: Acute Assessment and plan: His gout symptoms have resolved. We will discontinue his prednisone at discharge. He has not been eating the hydrocodone. Qualifiers: Gout site: foot Gout etiology: idiopathic Chronicity: chronic Laterality: unspecified laterality Presence of tophus: without tophus Qualified Code(s): M1A.0790 - Idiopathic chronic gout, unspecified ankle and foot, without tophus (tophi) (4) Essential hypertension Current Visit: Yes Status: Chronic Assessment and plan: Blood pressures have been under good control. (5) Diabetes mellitus, type 2 Current Visit: Yes Status: Chronic Assessment and plan: His sugars have been under good control, occasionally in the evenings they are under 100 and we have held his glimepiride in the evenings. Qualifiers: Diabetes mellitus complication detail: with other neurological complication Diabetes mellitus termite treater insulin use: without care home use Qualified Code(s): E11.49 - Type 2 diabetes mellitus with other diabetic neurological complication (6) Heterozygous for prothrombin [id number] mutation Current Visit: Yes Status: Chronic Assessment and plan: Anticoagulated with Coumadin. We will arrange Coumadin clinic follow-up (7) Constipation Current Visit: Yes Status: Acute Assessment and plan: Is showing improvement. Currently on stool softener. Qualifiers: Constipation type: other constipation type Qualified Code(s): K59.09 - Other constipation (8) Hypothyroid Current Visit: Yes Status: Chronic Qualifiers: Hypothyroidism type: acquired Qualified Code(s): E03.9 - Hypothyroidism, unspecified (9) Morbid obesity with BMI of 40.0-44.9, adult Current Visit: No Status: Chronic - Subjective Interval history: Patient thinks he is doing better. He would like to be doing better than his current status though. He does plan to go home tomorrow. He denies any cardiac type chest pain, palpitations, dyspnea, GI symptoms other than his bowels are moving small amount of the time/constipation from his pain medication use. He realizes he still needed to use his walker as he does have some right-sided weakness. His gout symptoms are basically gone. - Constitutional Vitals: Temp Pulse Resp BP Pulse Ox 97.9 F 94 16 97/66 94 03/08/17 07:00 03/08/17 07:00 03/08/17 07:00 03/08/17 07:00 03/08/17 07:00 General appearance: Present: A&O X 3, pleasant, no acute distress - Respiratory Respiratory exam: Present: CTAB - Cardiovascular Cardiovascular exam: Present: RRR, +S1, +S2. Absent: systolic murmur - Extremities Exam Extremities exam: Absent: calf tenderness, pedal edema, tenderness Additional comments: No foot tenderness on palpation - Neurological Exam Neurological exam: Present: CN II-XII intact, oriented X3. Absent: facial droop , speech deficit Additional comments: I did not check his gait today. Internal Medicine: Result - Labs CBC & Chem 7: 03/07/17 05:45 03/07/17 05:45 - ABG Interpretation ABG results: PT/INR, D-dimer PT 28.0 Seconds (9.4-12.1) H 03/08/17 05:40 Consult Discharge Plan - Plan Instructions: Acute Gouty Arthritis (GEN) Referrals: Corinne Lopez MD [Primary Care Provider] -
--- NOTE | 2017-03-08 17:16 | Discharge Summary ---
Date of Encounter: 03/09/17 Time of Encounter: 11:17 - Discharge Diagnosis (1) Cerebrovascular accident Priority: Primary Status: Acute Comments: Patient sustained at least 2 CVAs and was diagnosed as having a prothrombin gene mutation. It was recommended that he be on Coumadin as he broke through with aspirin and Plavix. He has right-sided weakness in upper lower extremities with gait abnormality. He has had PT, OT, recreational therapy and is advanced to the point where he can be discharged to home with the use of a walker. Except for some mild constipation he does not have any other acute symptoms. I contacted the technical training coordinator to verify his medications and he recommended Coumadin and aspirin, and discontinuing the Plavix. He will be following up in the Coumadin clinic. Those orders have been sent. He is currently taking 7.5 mg daily and his INR is therapeutic between 2 and 3. Qualifiers: CVA mechanism: thrombosis Precerebral and cerebral artery: unspecified cerebral artery Qualified Code(s): I63.30 - Cerebral infarction due to thrombosis of unspecified cerebral artery (2) Right sided weakness Priority: Secondary Status: Acute (3) Gout Priority: Secondary Status: Resolved Comments: He has had a history of gout chronically, he had acute flare and was placed on prednisone and hydrocodone for a few days. His prednisone was discontinued prior to discharge. He is asymptomatic in that regard. Qualifiers: Gout site: foot Gout etiology: idiopathic Chronicity: chronic Laterality: unspecified laterality Presence of tophus: without tophus Qualified Code(s): M1A.0790 - Idiopathic chronic gout, unspecified ankle and foot, without tophus (tophi) (4) Essential hypertension Priority: Secondary Status: Chronic Comments: His blood pressure has been under good control. (5) Diabetes mellitus, type 2 Priority: Secondary Status: Chronic Comments: His sugars have been under good control, in fact in the evening it has been a bit low and his evening Amaryl has been held occasionally. Likely his diet is improved here compared to home. 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 (7) Constipation Priority: Secondary Status: Acute Comments: He was started on hydrocodone because of severe gout attack. That slowed his bowels down some read he is without that pain medication now and his bowels are moving better. Qualifiers: Constipation type: other constipation type Qualified Code(s): K59.09 - Other constipation (8) Hypothyroid Priority: Secondary Status: Chronic Qualifiers: Hypothyroidism type: acquired Qualified Code(s): E03.9 - Hypothyroidism, unspecified (9) Morbid obesity with BMI of 40.0-44.9, adult Priority: Secondary Status: Chronic - Discharge Medications Home Medications: Albuterol Neb [Proventil Neb] 2.5 mg IH TID PRN 01/30/17 [History] Albuterol Sulfate [Albuterol Inhaler] 2 puff IH Q4H PRN 01/30/17 [History] Aspirin [Ecotrin] 325 mg PO DAILY 01/30/17 [History] BuPROPion XL (24 HR) [Wellbutrin Xl] 150 mg PO DAILY 01/30/17 [History] Cetirizine HCl [Zyrtec] 10 mg PO DAILY 01/30/17 [History] Cyclobenzaprine [Flexeril] 10 mg PO HS PRN 01/30/17 [History] Diltiazem HCl [Diltiazem 24Hr Cd] 240 mg PO DAILY 01/30/17 [History] Fluticasone Propionate Nasal [Flonase] 100 mcg NS DAILY 01/30/17 [History] Fluticasone/Salmeterol [Advair 100-50 Diskus] 2 puff IH DAILY 01/30/17 [History] Glimepiride [Amaryl] 4 mg PO BID 01/30/17 [History] Levothyroxine Sodium [Synthroid] 274 mcg PO QAM 01/30/17 [History] Multivitamin [Multi-Day Vitamins] 1 tab PO DAILY 01/30/17 [History] [place]-3/Dha/Epa/Fish Oil [Fish Oil 1,000 mg Softgel] 1,000 mg PO DAILY 01/30/17 [History] Simvastatin [Zocor] 20 mg PO HS 01/30/17 [History] Tramadol HCl [Ultram] 50 mg PO Q4H PRN 01/30/17 [History] Ubidecarenone [Co Q-10] 100 mg PO DAILY 01/30/17 [History] Valsartan/Hydrochlorothiazide [Diovan Hct 160-12.5 mg Tab] 0.5 each PO BID 01/30 [History] Exenatide Microspheres [Bydureon] 2 mg SQ WE 02/21/17 [History] Bisacodyl [Dulcolax] 5 mg PO DAILY PRN tab 02/27/17 [Rx] Warfarin [Coumadin] 7.5 mg PO DAILY@1800 #30 tab 02/27/17 [Rx] Linagliptin/Metformin HCl [Jentadueto 2.5 mg-1000 mg Tab] 1 each PO BIDWM [History] Allergies/Adverse Reactions: Allergies sulfamethoxazole [From Bactrim] Allergy (Verified 02/27/17 16:20) Hives trimethoprim [From Bactrim] Allergy (Verified 02/27/17 16:20) Hives atenolol Adverse Reaction (Verified 02/27/17 16:20) Palpitations Procedures/tests Complete & Pending: Laboratory Results - last 48 hr 03/06/17 03/06/17 03/06/17 07:41 11:36 20:01 WBC RBC Hgb Hct MCV MCH MCHC RDW Plt Count MPV Immature Gran % Seg Neutrophils % Lymphocytes % Monocytes % Eosinophils % Basophils % Neutrophils # Lymphocytes # Monocytes # Eosinophils # Basophils # PT INR Sodium Potassium Chloride Carbon Dioxide BUN Creatinine Est GFR ( Amer) Est GFR (Non-Af Amer) BUN/Creatinine Ratio Glucose POC Glucose 101 H 108 H 135 H Calculated Osmolality Calcium 03/07/17 03/07/17 03/07/17 05:45 05:45 05:45 WBC 11.1 RBC 5.20 Hgb 15.1 Hct 44.4 MCV 85.4 MCH 29.0 MCHC 34.0 RDW 12.7 Plt Count 307 MPV 9.4 Immature Gran % 1.2 Seg Neutrophils % 60.5 Lymphocytes % 29.7 Monocytes % 6.7 Eosinophils % 1.2 Basophils % 0.7 Neutrophils # 6.7 Lymphocytes # 3.3 Monocytes # 0.7 Eosinophils # 0.1 Basophils # 0.1 PT 23.9 H INR 2.2 Sodium 137 Potassium 3.9 Chloride 102 Carbon Dioxide 25 BUN 19 Creatinine 1.03 Est GFR ( Amer) > 60 Est GFR (Non-Af Amer) > 60 BUN/Creatinine Ratio 18 Glucose 65 L POC Glucose Calculated Osmolality 284 Calcium 10.1 03/07/17 03/07/17 03/07/17 08:14 11:32 16:36 WBC RBC Hgb Hct MCV MCH MCHC RDW Plt Count MPV Immature Gran % Seg Neutrophils % Lymphocytes % Monocytes % Eosinophils % Basophils % Neutrophils # Lymphocytes # Monocytes # Eosinophils # Basophils # PT INR Sodium Potassium Chloride Carbon Dioxide BUN Creatinine Est GFR ( Amer) Est GFR (Non-Af Amer) BUN/Creatinine Ratio Glucose POC Glucose 90 H 91 H 92 H Calculated Osmolality Calcium 03/07/17 03/08/17 20:23 05:40 WBC RBC Hgb Hct MCV MCH MCHC RDW Plt Count MPV Immature Gran % Seg Neutrophils % Lymphocytes % Monocytes % Eosinophils % Basophils % Neutrophils # Lymphocytes # Monocytes # Eosinophils # Basophils # PT 28.0 H INR 2.5 Sodium Potassium Chloride Carbon Dioxide BUN Creatinine Est GFR ( Amer) Est GFR (Non-Af Amer) BUN/Creatinine Ratio Glucose POC Glucose 76 Calculated Osmolality Calcium Date of admission: 02/27/17 16:59 Primary care physician: Corinne Lopez, Consults: 02/27/17 17:34 Consult to Elevator Runner [CONS] Routine Reason for SW Consult: discharg planning 02/27/17 17:40 Consult to Occupational Therapy [CONS] Routine Comment: Evaluate, develop and implement POC Reason for Consult: eval Consult to Physical Therapy [CONS] Routine Comment: Evaluate, develop and implement POC Reason for Consult: eval Consult to Recreational Therapy [CONS] Routine Comment: Evaluate, develop and implement POC Consult to Elevator Runner [CONS] Routine Reason for SW Consult: d/c planning Consult to Speech Therapy [CONS] Routine Comment: Evaluate, develop and implement POC Reason for Consult: speech impairment Call Completed: Yes 02/28/17 14:00 Consult to Psychology [CONS] Routine Consulting Provider: Jolie Knox Reason for Consult: depression Time Notified: 13:00 Call Completed: No Discharging clinician: Antione Garrison Anticipated date of discharge: 03/09/17 - Patient Status Disposition: Home, Self-Care Condition: Good Functional capacity at discharge: uses cane/walker Overall status at discharge: patient is not back to baseline - Discharge Instructions Instructions: Acute Gouty Arthritis (GEN) Follow Up With: COAGULATION, COUMADIN CLINIC [Other] - 03/10/17 9:30 am Corinne Lopez MD [Primary Care Provider] - 03/14/17 2:00 pm (apptoint with Pooja Brown CNP) - Diet and Activity Activity: ambulate only with your walker, as per physical therapy Diet: diabetic diet, low salt diet Interval History: Patient is currently on a community release evaluation today, going out to lunch at a diner to see how he does with mobility and ADLs. Last evening when I evaluated him he had no cardiac or respiratory or GI symptoms. His gait is getting better but still requires the use of a walker. His pro time has been therapeutic with INR between 2 and 3 using warfarin 7.5 mg daily. Hospital course: Mr. Corado is a 52 year old male who was recently diagnosed as having a prothrombin gene mutation sustained 2 CVAs. He is now anticoagulated with Coumadin. He was in a rehabilitation center for right sided weakness/gait antibiotic. He has improved with PT and OT and recreational therapy. It is now safe to send him home with continued walker use and therapy as an outpatient. He will continue with his Coumadin. Please see the note as above. - Time Spent with Patient Total time spent providing and/or coordinating discharge services: - Constitutional Vitals: Temp Pulse Resp BP Pulse Ox 97.9 F 94 16 97/66 94 03/08/17 07:00 03/08/17 07:00 03/08/17 07:00 03/08/17 07:00 03/08/17 07:00
[2017-03-08] MEDS: *HR* Warfarin 7.5 MG TABLET PO SCH (18:18)
[2017-03-09 07:06] VITALS: BP 120/77
[2017-03-09 07:19] LABS: INR 2.3; Prothrombin Time 25.5 Seconds (9.4-12.1)
[2017-03-09] MEDS: LINAGLIPTIN PO SCH (08:27)
[2017-03-09] MEDS: METFORMIN HCL PO SCH (08:27)
[2017-03-09] MEDS: *HR* Glimepiride 4 MG TABLET PO SCH (08:28)
[2017-03-09] MEDS: Aspirin Enteric Coated 325 MG Tablet PO SCH (08:28)
[2017-03-09] MEDS: Diltiazem CD (24hr) 240 MG CAPSULE PO SCH (08:29)
[2017-03-09] MEDS: Loratadine 10 MG TABLET PO SCH (08:29)
[2017-03-09] MEDS: (Ubidecarenone [Co Q-10] 100 MG) PO SCH (08:30)
[2017-03-09] MEDS: HYDROCHLOROTHIAZIDE PO SCH (08:31)
[2017-03-09] MEDS: Budesonide/Formoterol 80/4.5 MDI IH SCH (08:31)
[2017-03-09] MEDS: VALSARTAN PO SCH (08:31)
[2017-03-09] MEDS: predniSONE 10 MG TABLET PO SCH (08:31)
[2017-03-09] MEDS: BuPROPion XL (24 HR) 150 MG TABLET PO SCH (08:32)
[2017-03-09] MEDS: Multivit/Ca/Min/Fe/FA 1 TAB TABLET PO SCH (08:32)
[2017-03-09] MEDS: Fluticasone Propionate Nasal 50 MCG/SPRAY BOTTLE NS SCH (08:34)
[2017-03-09] MEDS: traMADol 50 MG TABLET PO PRN (10:09)
--- NOTE | 2017-03-09 14:13 | Physcial Medicine-Consult Note ---
Date of Encounter: 03/09/17 Time of Encounter: 14:10 Physical Medicine - AP (1) Cerebrovascular accident Status: Acute Assessment and plan: 1. Patient will continue with intensive PT/OT/TR to address gait, safety, transfers and ADLs. We will focus on safety with his walker and fall prevention. Plan for discharge to home on 03/11/17. Code(s): I63.9 - Cerebral infarction, unspecified SNOMED Code(s): 558774269 (2) Constipation Status: Acute Code(s): K59.00 - Constipation, unspecified SNOMED Code(s): 24812657 Physical Medicine - HPI - Data of Consult Consult date: 03/09/17 Requesting Physician: Antione Shirley DO Primary Care Provider: Corinne Lopez, - Consult Narrative Reason for consult: CVA History of present illness: Mr. Corado is a 52 year old male who initially presented to [facility] with complaints of right sided weakness and numbness. Patient had previous history of CVA 3 weeks prior to this presentation. Patient underwent an mri of his brain which revealed a new lacunar infarct. He was started on a heparin drip and has been placed on coumadin for anticoagulation. Patient has had improvement in his right sided weakness. He continues to have issues with balance. CC: Antione Shirley DO Past Med Surg Social Fam HX - Past Medical History Medical history: asthma, CVA, diabetes, hyperlipidemia, hypertension, thyroid disease, TIA Psychiatric history: no psych history - Past Surgical History Surgical History: other - Social History Smoking Status: Former smoker (Quit smoking during his years in the 2,10E+07.) Smokeless Tobacco Status: No Alcohol use: occasionally Drug use: marijuana - Family History Mother Living Status: Hx Family Cardiac Disorders: Yes Hx Family Respiratory Disorders: No Hx Family Cancer: Yes Hx Family GI Disorders: No Hx Family Endocrine Disorder: Yes Hx Family Neuromuscular Disorders: Yes Hx Family Neurologic Disorders: Yes Hx Family HEENT Disorders: No Hx Family Autoimmune Disorders: No Brother Hx Family Endocrine Disorder: Yes (carrier of prothombin gene mutation) Medications and Allergies Albuterol Neb [Proventil Neb] 2.5 mg IH TID PRN 01/30/17 [History] Albuterol Sulfate [Albuterol Inhaler] 2 puff IH Q4H PRN 01/30/17 [History] Aspirin [Ecotrin] 325 mg PO DAILY 01/30/17 [History] BuPROPion XL (24 HR) [Wellbutrin Xl] 150 mg PO DAILY 01/30/17 [History] Cetirizine HCl [Zyrtec] 10 mg PO DAILY 01/30/17 [History] Cyclobenzaprine [Flexeril] 10 mg PO HS PRN 01/30/17 [History] Diltiazem HCl [Diltiazem 24Hr Cd] 240 mg PO DAILY 01/30/17 [History] Fluticasone Propionate Nasal [Flonase] 100 mcg NS DAILY 01/30/17 [History] Fluticasone/Salmeterol [Advair 100-50 Diskus] 2 puff IH DAILY 01/30/17 [History] Glimepiride [Amaryl] 4 mg PO BID 01/30/17 [History] Levothyroxine Sodium [Synthroid] 274 mcg PO QAM 01/30/17 [History] Multivitamin [Multi-Day Vitamins] 1 tab PO DAILY 01/30/17 [History] [place]-3/Dha/Epa/Fish Oil [Fish Oil 1,000 mg Softgel] 1,000 mg PO DAILY 01/30/17 [History] Simvastatin [Zocor] 20 mg PO HS 01/30/17 [History] Tramadol HCl [Ultram] 50 mg PO Q4H PRN 01/30/17 [History] Ubidecarenone [Co Q-10] 100 mg PO DAILY 01/30/17 [History] Valsartan/Hydrochlorothiazide [Diovan Hct 160-12.5 mg Tab] 0.5 each PO BID 01/30 [History] Exenatide Microspheres [Bydureon] 2 mg SQ WE 02/21/17 [History] Bisacodyl [Dulcolax] 5 mg PO DAILY PRN tab 02/27/17 [Rx] Warfarin [Coumadin] 7.5 mg PO DAILY@1800 #30 tab 02/27/17 [Rx] Linagliptin/Metformin HCl [Jentadueto 2.5 mg-1000 mg Tab] 1 each PO BIDWM [History] Allergies sulfamethoxazole [From Bactrim] Allergy (Verified 02/27/17 16:20) Hives trimethoprim [From Bactrim] Allergy (Verified 02/27/17 16:20) Hives atenolol Adverse Reaction (Verified 02/27/17 16:20) Palpitations - Constitutional Constitutional: Absent: anorexia, chills - Cardiovascular Cardiovascular: Absent: chest pain, diaphoresis - Respiratory Respiratory: Absent: cough, dyspnea - Gastrointestinal Gastrointestinal: Absent: abdominal pain - Musculoskeletal Musculoskeletal: Absent: muscle weakness, radiating pain into limb - Neurological Neurological: Present: disequilibrium - Psychiatric Psychiatric: Absent: anhedonia, confusion, depression Physical Medicine - Exam - Constitutional Vitals: Temp Pulse Resp BP Pulse Ox 97.3 F L 107 18 120/77 97 03/09/17 07:05 03/09/17 07:05 03/09/17 07:05 03/09/17 07:05 03/09/17 07:05 General appearance: no acute distress Exam: Patient is alert and oriented to person, place and date. He is able to follow commands without difficulty. He ambulates with a wheeled walker with SBA. - Head Head exam: Present: atraumatic, normal inspection Additional comments: No facial droop. - Respiratory Respiratory exam: Present: CTAB - Cardiovascular Cardiovascular exam: Present: RRR - GI/Abdominal GI/Abdominal exam: Present: normal bowel sounds, soft. Absent: tenderness - Extremities Exam Extremities exam: Present: full ROM. Absent: calf tenderness Additional comments: Motor strength is 5/5 in the bilateral upper and lower limbs. Physical Medicine - Results - Labs CBC & Chem 7: 03/07/17 05:45 03/07/17 05:45 Consult Discharge Plan - Plan Instructions: Warfarin (By mouth), Acute Gouty Arthritis (GEN) Referrals: COAGULATION, COUMADIN CLINIC [Other] - 03/10/17 9:30 am Corinne Lopez MD [Primary Care Provider] - 03/14/17 2:00 pm (apptoint with Pooja Brown CNP)
== END 2017-03-09 14:30 | disposition home or self-care (01) | DRG 57 ==
LOC: INPGRE 16:59
PROVIDERS: ADMIT Internal Medicine; ATTEND Internal Medicine